=== PATIENT | female | born 1985 ===

== ENCOUNTER 2019-02-02 10:39 | Inpatient (IN) | payer OTHER ==
[2019-02-02] MEDS ORDERED: IBUPROFEN 600 MG TAB PO PRN (11:06)
[2019-02-02] MEDS ORDERED: LIDOCAINE 1% 300 MG/30 ML SDV SC PRN (11:06)
[2019-02-02] MEDS ORDERED: LR 1,000 ML IV PRN (11:06)
[2019-02-02] MEDS ORDERED: OXYTOCIN/RINGERS LACTATE 1,000 ML IV PRN (11:06)
[2019-02-02] MEDS ORDERED: PENICILLIN G POTASSIUM 5,000,000 UNIT in D5W 150 ML IV ONE (11:06)
[2019-02-02] MEDS ORDERED: OLIVE OIL 118 ML BTL MISC PRN (11:06)
[2019-02-02] MEDS ORDERED: MISOPROSTOL 200 MCG TAB PR PRN (11:06)
[2019-02-02] MEDS ORDERED: EPSOM SALT 454 GM TP PRN (11:06)
[2019-02-02 11:24] LABS: PLATELET COUNT 133 10^3/uL (150-400)
[2019-02-02] MEDS ORDERED: TERBUTALINE SULFATE 1 MG/ML VIAL ONE (11:55)
[2019-02-02] MEDS ORDERED: AMMONIA AROMATIC 1 EACH AMP IH ONE (11:55)
[2019-02-02] MEDS ORDERED: LIDOCAINE 1% 300 MG/30 ML SDV ONE (11:55)
[2019-02-02] MEDS ORDERED: OXYTOCIN 10 UNIT/ML VIAL ONE (11:55)
[2019-02-02] MEDS ORDERED: OLIVE OIL 118 ML BTL MISC ONE (11:55)
[2019-02-02] MEDS ORDERED: MISOPROSTOL 200 MCG TAB ONE (11:56)
--- NOTE | 2019-02-02 11:57 | PDGENHP ---
History and Physical History and Physical: Care: [facility] HPI: Christine Peters is a [id number] with IUP@ 38-3 weeks that presents to L&D from office for labor admission. States contractions started around 0600, with SROM @ 0630. She is rating contractions 6-7/10. She denies any VB, does report bloody show. She reports +FM. She desires pain relief, would like to try hydrotherapy. EDC:02/13/2019 which is based on LMP: 05/09/2018 which is known and consistent with Ultrasound in first trimester. Her is complicated by: CHRISS @ 30wks, AMA, FOB has congenital Fibular hemimelia, +GBS Review of Systems: Constitutional: Denies any fever, chills, or fatigue HEENT: denies any visual changes, difficulty swallowing, hearing loss Cardiovascular: Denies any chest pain, palpitations, leg swelling Respiratory: denies any cough, wheezing, or shortness of breathe GI: Denies any nausea, vomiting, diarrhea, constipation : denies any dysuria, urgency, frequency, vaginal bleeding Musculoskeletal: denies any muscle or bone pain Skin: denies any rashes Neuro: denies any headache, seizures, lightheadedness, dizziness, or loss of consciousness Psychiatric: denies any depression, anxiety, or SI/HI thoughts HISTORY: Previous OB history: G1 Past medical history: noncontributory Past surgical history: oral surgery Social: Denies any alcohol, tobacco, or drug use. Family history: Not relevant Medications: PNV Allergies (list reaction): NKDA (blueberries) LABS: Rh: A+ ABS: Neg Rubella: Immune HbsAg: NR HIV: NR VDRL: NR 1hr: 89 GC: Neg Chlamydia: Neg Pap: Normal GBS: + PHYSICAL EXAM: Constitutional: WN, A&Ox3 HEENT: normocephalic atraumatic, supple Skin: Warm, dry, intact Heart: RRR, no murmur Chest: CTA-B Abdomen: Soft, nontender, gravid SVE: 6/-1 Extremities: trace edema, negative homans sign Neuro: grossly normal Psych: normal affect assessment: FHT baseline 125 +accels, no decels, moderate variability Contractions: toco q 2-3 Assessment: 1) [id number] with IUP@ 38-3wks 2) active labor 3) GBS + 4) Cat 1 FHR tracing Plan: 1) Admit to L&D 2) IV abx 2/2 +GBS 3) hydrotherapy/pain management PRN 4) reassess 2hr/PRN 5) anticipate Today's visit was approximately 30 min, of which >50% of visit 20 min, was spent face to face with pt on direct counseling/coordination of care.
[2019-02-02] MEDS ORDERED: SIMETHICONE 80 MG TAB CHEW PO PRN (15:02)
[2019-02-02] MEDS ORDERED: HYDROCORTISONE 0.5% CREAM TP PRN (15:02)
--- NOTE | 2019-02-02 15:03 | OBDEL ---
Info Type: Vaginal Presentation at Delivery: Vertex L&D Analgesia/Anesthesia Type: None GBS+: Yes Intrapartum Medications: Discontinued Medications Generic Name Dose Route Start Last Admin Trade Name Mike PRN Reason Stop Dose Admin Penicillin G Potassium 5,000, 160 mls @ 160 mls/hr 02/02/19 11:06 02/02/19 11 :15 000 unit/ Dextrose IV 02/02/19 12:05 160 mls ONCE ONE Administration Protocol Indications for Delivery: Spontaneous Labor, SROM Vaginal Delivery - Delivery Provider Delivery Physician/CNM: Marybel Kern - Labor and Delivery Onset of Contractions Date: 02/02/19 Onset of Contractions Time: 06:30 Onset of Contractions Type: Spontaneous Rupture of Membranes Date: 02/02/19 Rupture of Membranes Time: 06:30 Rupture of Membranes Type: Spontaneous Amniotic Fluid Color: Clear Dilation Complete Date: 02/02/19 Dilation Complete Time: 12:30 Placenta Delivery Date: 02/02/19 Placenta Delivery Time: 14:34 Total Hours of Labor: 8 Laceration: 2nd Degree Repair: 3-0, Vicryl Vaginal Sponge Count Correct: Yes Vaginal Needle Count Correct: Yes Vaginal Sweep Performed: Yes EBL: 250 Delivery Events: None Data CHRISS: 02/13/19 Gestational Age: 38 week(s) and 3 day(s) [place] Delivery Date: 02/02/19 Delivery Time: 14:19 Sex of Infant: Male Score (1 Min): 8 Score (5 Min): 10 ICD10 Worksheet Patient Problems: Problems Problem Status Onset GBS (group B Streptococcus carrier), +RV culture, currently Acute (spontaneous vaginal delivery) Acute - ICD10 Problem Qualifiers (1) (spontaneous vaginal delivery) (2) GBS (group B Streptococcus carrier), +RV culture, currently
[2019-02-02] MEDS ORDERED: PENICILLIN G POTASSIUM 2,500,000 UNIT in D5W 150 ML IV SCH (15:07)
[2019-02-02] MEDS: ACETAMINOPHEN 325 MG TAB PO PRN ×2 (16:15→21:56)
[2019-02-02] MEDS: IBUPROFEN 600 MG TAB PO PRN (21:56)
[2019-02-02] MEDS: DOCUSATE SODIUM 100 MG CAP PO PRN (21:57)
[2019-02-03 07:06] LABS: PLATELET COUNT 142 10^3/uL (150-400)
[2019-02-03] MEDS: ACETAMINOPHEN 325 MG TAB PO PRN ×3 (07:40→20:29)
[2019-02-03] MEDS: DOCUSATE SODIUM 100 MG CAP PO PRN ×2 (07:41→20:23)
[2019-02-03] MEDS: IBUPROFEN 600 MG TAB PO PRN ×3 (07:41→20:28)
--- NOTE | 2019-02-03 14:02 | OBPP ---
Progress Note Assessment/Plan: Assessment: 33 y/o P1 s/p ppd #1 anemia preeclampsia without severe features VSS, BPs wnl since midnight Plan: Rputine pp care repeat PIH labs in am Daily iron Plan d/c home tomorrow if stable 02/03/19 13:59 02/03/19 14:03 Subjective/ Course: 02/03/19 14:01 Feeling good. Vag bleeding wnl, pain well controlled with oral pain meds, tolerating regular diet and voiding. going well with support. Denies headache, visual changes, epigastric pain Objective: 02/03/19 06:25 02/03/19 06:25 Patient ABO/Rh A POSITIVE 02/02/19 11:10 Uric Acid 6.9 mg/dL (2.5-6.8) H 02/03/19 06:25 Total Bilirubin 0.3 mg/dL (0.1-1.4) 02/02/19 16:30 Conjugated Bilirubin 0.3 mg/dL (0.0-0.5) 02/02/19 16:30 Unconjugated Bilirubin 0.0 mg/dL (0.0-1.1) 02/02/19 16:30 AST 69 IU/L (14-46) H 02/03/19 06:25 ALT 88 IU/L (9-52) H 02/03/19 06:25 Lactate Dehydrogenase 538 IU/L (313-618) 02/03/19 06:25 Temp Pulse Resp BP Pulse Ox 36.3 C 77 16 113/79 96 02/03/19 08:04 02/03/19 08:04 02/03/19 08:04 02/03/19 08:04 02/02/19 21:53 Uterine Position/Fundal Height: Umbilicus -1 Uterine Tone: Firm Physical Exam - Physical Exam EENT: PERRL/EOMI Neck: non-tender Respiratory: normal breath sounds Cardiac/Chest: regular rate, rhythm Extremities: normal range of motion DTR- Lower Extremities: Knee (R): 2+, Knee (L): 2+ Skin: normal color, warm/dry Neuro/Psych: no motor/sensory deficits, alert, normal mood/affect, oriented x 3
[2019-02-03] MEDS: FERROUS SULFATE 325 MG TAB PO SCH (20:23)
[2019-02-04] MEDS: IBUPROFEN 600 MG TAB PO PRN ×2 (03:06→09:02)
[2019-02-04] MEDS: ACETAMINOPHEN 325 MG TAB PO PRN ×2 (03:07→09:01)
[2019-02-04 06:56] LABS: PLATELET COUNT 151 10^3/uL (150-400)
[2019-02-04 07:33] VITALS: BP 120/88
--- NOTE | 2019-02-04 08:24 | OBGCSDC ---
General Delivery Information - General Info : 1 Para: 1 Abortions: 0 Type: Vaginal L&D Analgesia/Anesthesia Type: Local Admission Date: 02/02/19 Labs: Patient ABO/Rh A POSITIVE 02/02/19 11:10 Hct 29.7 % (38.0-47.0) L 02/04/19 06:30 - Hospital Course : 02/03/19 14:01 Feeling good. Vag bleeding wnl, pain well controlled with oral pain meds, tolerating regular diet and voiding. going well with support. Denies headache, visual changes, epigastric pain Vaginal - Delivery Provider Delivery Physician/CNM: Marybel Kern - Diagnosis Labor: Spontaneous Rupture of Membranes Type: Spontaneous Amniotic Fluid Color: Clear Laceration: 2nd Degree Repair: 3-0, Vicryl Delivery Events: None - Delivery EBL: 250 Data CHRISS: 02/13/19 Gestational Age: 38 week(s) and 5 day(s) [place] Delivery Date: 02/02/19 Delivery Time: 14:19 Sex of : Male Weight (gm): 3080 g Score (1 Min): 8 Score (5 Min): 10 Discharge Information - Discharge Information Prescriptions: Ibuprofen [Motrin (*)] 600 mg PO Q6HRS PRN #40 tab PRN Reason: Pain, Mild Able To Take Po Docusate Sodium [Colace 100 MG (*)] 100 mg PO BID PRN #40 cap PRN Reason: Constipation Condition: Good
[2019-02-04] MEDS: FERROUS SULFATE 325 MG TAB PO SCH (08:54)
[2019-02-04] MEDS: DOCUSATE SODIUM 100 MG CAP PO PRN (09:00)
--- NOTE | 2019-02-04 10:41 | OBGCSDC ---
General Delivery Information - General Info : 1 Para: 1 Abortions: 0 Type: Vaginal L&D Analgesia/Anesthesia Type: Local Admission Date: 02/02/19 Labs: Patient ABO/Rh A POSITIVE 02/02/19 11:10 Hct 29.7 % (38.0-47.0) L 02/04/19 06:30 - Hospital Course : 02/03/19 14:01 Feeling good. Vag bleeding wnl, pain well controlled with oral pain meds, tolerating regular diet and voiding. going well with support. Denies headache, visual changes, epigastric pain 02/04/19 10:36 S) Pt doing well, reports min pain and bleeding. she is ambulating and voiding without difficulty. She is . She desires discharge home today. O) VSS, afebrile - BPs 120s/80s constitutional: WNWF, A&Ox3 HEENT: normocephalic, atraumatic, supple Heart: RRR, No murmur Chest: CTA-B Abdomen: Soft, nontender Uterus: Firm at U-2 Lochia: Minimal rubra Perineum: Intact, healing well Extremities: Trace edema, and negative Dena's sign Neuro: Grossly normal Denies headache, visual changes, epigastric pain A) 33 year-old S/P PPD#2 anemia Pre eclampsia without severe features P) Discharge home today Continue Daily iron supplement Pelvic rest x6wks Discussed danger signs (infection, depression, heavy bleeding, etc) Reviewed pre-eclampsia precautions - will follow up in office in 1 week RTO in 1 week for BP check, 4/6 weeks Vaginal - Delivery Provider Delivery Physician/CNM: Marybel Kern - Diagnosis Labor: Spontaneous Rupture of Membranes Type: Spontaneous Amniotic Fluid Color: Clear Laceration: 2nd Degree Repair: 3-0, Vicryl Delivery Events: None - Delivery EBL: 250 Data CHRISS: 02/13/19 Gestational Age: 38 week(s) and 5 day(s) [place] Delivery Date: 02/02/19 Delivery Time: 14:19 Sex of Infant: Male Weight (gm): 3080 g Score (1 Min): 8 Score (5 Min): 10 Discharge Information - Discharge Information Prescriptions: Ibuprofen [Motrin (*)] 600 mg PO Q6HRS PRN #40 tab PRN Reason: Pain, Mild Able To Take Po Docusate Sodium [Colace 100 MG (*)] 100 mg PO BID PRN #40 cap PRN Reason: Constipation Condition: Good
== END 2019-02-04 13:30 | disposition home or self-care (01) | DRG 807 ==
LOC: FLD 10:39 → FOB 18:40
PROVIDERS: ADMIT Advanced Practice Midwife; ATTEND Advanced Practice Midwife
PROC: 0KQM0ZZ Repair Perineum Muscle, Open Approach (ICD-10-PCS; principal; 2019-02-02)
PROC: 10E0XZZ Delivery of Products of Conception, External Approach (ICD-10-PCS; principal; 2019-02-02)
DX: O70.1 Second degree perineal laceration during delivery (principal); O99.824 Streptococcus B carrier state complicating childbirth; Z3A.38 38 weeks gestation of pregnancy; Z37.0 Single live birth
CPT/HCPCS: J2540; J2590; J3105